=== PATIENT | male | born 1970 | race Caucasian/White ===

== ENCOUNTER 2020-10-07 13:08 | Emergency (ER) | payer SELFPAY ==
--- NOTE | 2020-10-07 13:22 | EDM.PDOC ---
ED HPI GENERAL MEDICAL PROBLEM - General Chief Complaint: Upper Extremity Injury/Pain Stated Complaint: right elbow pain Time Seen by Provider: 10/07/20 13:13 Source of Information: Reports: Patient History Limitations: Reports: No Limitations - History of Present Illness INITIAL COMMENTS - FREE TEXT/NARRATIVE: Pt with swelling on right posterior elbow No known trauma No redness No open areas Increased pain No previous hx/o same Onset: Gradual Duration: Week(s): Location: Reports: Upper Extremity, Right Quality: Reports: Ache Severity: Moderate Improves with: Reports: Immobilization Worsens with: Reports: Movement - Related Data Allergies Allergy/AdvReac Type Severity Reaction Status Date / Time 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 Verified 10/07/20 13:16 Shock Review of Systems - Review of Systems Review Of Systems: See Below Musculoskeletal: Reports: Joint Pain ED EXAM, GENERAL - Physical Exam Exam: See Below Extremities: Limited Range of Motion, Other (Right posterior elbow with fluid filled bursa No erythema No skin open areas No induration or fluctuance Elbow with full ROM) Course - Orders/Labs/Meds Orders: Active Orders 24 hr Category Date Time Status Ketorolac [Toradol] Med 10/07/20 13:17 Once 60 mg IM ONETIME ONE Medication Orders Ketorolac Tromethamine (Toradol) 60 mg IM ONETIME ONE Stop: 10/07/20 13:18 Meds: Medications Generic Name Dose Route Start Last Admin Trade Name Freq PRN Reason Stop Dose Admin Ketorolac Tromethamine 60 mg 10/07/20 13:17 Toradol IM 10/07/20 13:18 ONETIME ONE - Re-Assessments/Exams Free Text/Narrative Re-Assessment/Exam: 10/07/20 13:20 Pt given Toradol 60 mg IM in ER Departure - Departure Time of Disposition: 13:30 Disposition: Home, Self-Care 01 Clinical Impression: Olecranon bursitis, right elbow - Discharge Information *PRESCRIPTION DRUG MONITORING PROGRAM REVIEWED*: Not Applicable *COPY OF PRESCRIPTION DRUG MONITORING REPORT IN PATIENT BRAVO: Not Applicable Instructions: Elbow Bursitis, [id number] Referrals: PCP,None [Primary Care Provider] - Additional Instructions: Ice as needed Tylenol, Motrin or Aleve as needed Follow up in clinic - My Orders Last 24 Hours: My Active Orders 10/07/20 13:17 Ketorolac [Toradol] 60 mg IM ONETIME ONE - Assessment/Plan Last 24 Hours: My Active Orders 10/07/20 13:17 Ketorolac [Toradol] 60 mg IM ONETIME ONE
[2020-10-07] MEDS: Ketorolac 60 MG/2 ML SDV IM ONE (13:40)
== END 2020-10-07 14:00 | disposition home or self-care (01) ==
LOC: LL.ED 13:08
DX: M70.21 Olecranon bursitis, right elbow (principal); Z91.030 Bee allergy status
CPT/HCPCS: 96372; 99283; J1885